=== PATIENT | male | born 1995 | race Caucasian/White ===

== ENCOUNTER 2017-05-01 09:06 | Emergency (ER) | payer OTHER ==
[~2017-05-01] VITALS: Ht 175.3 cm; Wt 47.2 kg
[2017-05-01] MEDS ORDERED: ONDANSETRON HCL INJ 2 MG/ML VIAL IV STA (09:22)
[2017-05-01] MEDS ORDERED: SODIUM CHLORIDE 0.9% 1000ML 1,000 ML IV STA (09:22)
[2017-05-01] MEDS ORDERED: FAMOTIDINE 20 MG/2 ML VIAL IV STA (09:22)
[2017-05-01 10:46] LABS: BASOPHILS % 0.5 % (0.0-1.0); EOSINOPHILS # (AUTO) 0.2 (0.0-0.4); EOSINOPHILS % 2.2 % (0.0-6.0); HEMATOCRIT 46.1 % (38.2-49.6); HEMOGLOBIN 16.1 g/dL (14.0-18.0); LYMPHOCYTES # (AUTO) 2.9 (1.0-3.2); LYMPHOCYTES % 33.3 % (18.0-39.1); MEAN CORPUSCULAR HEMOGLOBIN 27.4 pg (28-32); MEAN CORPUSCULAR HGB CONC 34.9 g/dL (31-35); MEAN CORPUSCULAR VOLUME 78.5 fL (81-99); MONOCYTES # (AUTO) 0.8 (0.2-0.8); MONOCYTES % 9.2 % (4.4-11.3); NEUTROPHILS # (AUTO) 4.7 (2.1-6.9); NEUTROPHILS % 54.6 % (38.7-80.0); PLATELET COUNT 367 x10e3/uL (140-360); RED BLOOD COUNT 5.87 x10e6/uL (4.3-5.7); RED CELL DISTRIBUTION WIDTH 12.6 % (11.7-14.4)
[2017-05-01 10:52] LABS: BILIRUBIN,URINE NEGATIVE (NEGATIVE); KETONES,URINE NEGATIVE (NEGATIVE); LEUKOCYTE ESTERASE ,URINE NEGATIVE (NEGATIVE); NITRITE,URINE NEGATIVE (NEGATIVE); URINE UROBILINOGEN 0.2 mg/dL (0.2 - 1)
[2017-05-01 10:53] LABS: CLARITY,URINE SL CLOUDY (CLEAR); COLOR,URINE YELLOW (YELLOW); PROTEIN,URINE DIPSTICK TRACE (NEGATIVE)
[2017-05-01 11:15] LABS: ALANINE AMINOTRANSFERASE 22 IU/L (0-55); ALBUMIN 4.7 g/dL (3.5-5.0); ALBUMIN/GLOBULIN RATIO 1.1 (0.8-2.0); ALKALINE PHOSPHATASE 69 IU/L (40-150); AMYLASE 59 U/L (25-125); ANION GAP 16.5 mmol/L (8-16); BLOOD UREA NITROGEN 16 mg/dL (7-26); BUN/CREATININE RATIO 20 (6-25); CALCIUM 10.8 mg/dL (8.4-10.2); CARBON DIOXIDE 30 mmol/L (22-29); CHLORIDE 98 mmol/L (98-107); CREATININE, SERUM 0.81 mg/dL (0.72-1.25); EST GLOMERULAR FILTRATION RATE > 60 ML/MIN (60-); GLUCOSE 69 mg/dL (74-118); LIPASE 11 U/L (8-78); POTASSIUM 3.5 mmol/L (3.5-5.1); SODIUM 141 mmol/L (136-145)
== END 2017-05-01 12:44 | disposition home or self-care (01) ==
LOC: ER 09:06
DX: R10.13 Epigastric pain (principal); K21.9 Gastro-esophageal reflux disease without esophagitis; E11.9 Type 2 diabetes mellitus without complications
CPT/HCPCS: 36415; 80053; 81001; 82150; 83690; 85025; 99284; J2405; J7030

== ENCOUNTER 2017-05-18 11:52 | Emergency (ER) | payer OTHER ==
[~2017-05-18] VITALS: Ht 175.3 cm; Wt 45.4 kg
[2017-05-18] MEDS ORDERED: SODIUM CHLORIDE 0.9% 1000ML 1,000 ML IV SCH (12:30)
--- NOTE | 2017-05-18 13:03 | Diagnostic Imaging Report ---
PROCEDURE:X-RAY CHEST, ONE VIEW COMPARISON:None. INDICATIONS:WEAKNESS, SHORTNESS OF BREATH FINDINGS: There are no consolidations, pleural effusions or pneumothorax. The cardiomediastinal silhouette and pulmonary vasculature are normal. There are no acute osseous abnormalities. CONCLUSION: No acute cardiopulmonary abnormality. Dictated by: Wong Page M.D. on 05/18/2017 at 13:12 Electronically approved by: Wogn Page M.D. on 05/18/2017 at 13:12
[2017-05-18 13:14] LABS: STREPTOCOCCUS GRP A ANTIGEN NEGATIVE (NEGATIVE)
[2017-05-18 13:27] LABS: INFLUENZAE A&B ANTIGEN (RAPID) POSITIVE FLU A (NEGATIVE)
== END 2017-05-18 15:20 | disposition home or self-care (01) ==
LOC: ER 11:52
DX: R50.9 Fever, unspecified (principal); R05 Cough; J11.1 Influenza due to unidentified influenza virus with other respiratory manifestations; E10.40 Type 1 diabetes mellitus with diabetic neuropathy, unspecified; F17.210 Nicotine dependence, cigarettes, uncomplicated
CPT/HCPCS: 71010; 83518; 87070; 87400; 99283